=== PATIENT | female | born 1975 | race Caucasian/White ===

== ENCOUNTER 2022-09-09 11:39 | Emergency (ER) | payer MEDICAID ==
[~2022-09-09] VITALS: Ht 167.6 cm; Wt 76.2 kg
[2022-09-09 12:01] VITALS: BP 157/94
--- NOTE | 2022-09-09 12:30 | NUR ---
47/F WALKED IN C/O RIGHT WRIST PAIN AND SWELLING X 3 DAYS. PT REPORTS UNK CAUSE. DENIES FALL OR INJURY. PMH: DENIES
[2022-09-09] MEDS ORDERED: IBUP-2213 PO (13:14)
== END 2022-09-09 13:30 | disposition home or self-care (01) ==
LOC: MED 11:39
DX: M79.641 Pain in right hand (principal); M25.531 Pain in right wrist; R20.2 Paresthesia of skin; Z79.1 Long term (current) use of non-steroidal anti-inflammatories (NSAID)
CPT/HCPCS: 73130; 99283